=== PATIENT | female | born 1970 | race Caucasian/White ===

== ENCOUNTER 2017-06-14 23:28 | Observation (INO) | payer BC ==
[~2017-06-14] VITALS: Ht 172.7 cm; Wt 129.3 kg
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
--- NOTE | ~2017-06-14 | CR2 ---
[facility] A Service of [facility] RADIOLOGY TEXT RESULTS PATIENT: JEAN-PAUL LOPEZ LOCATION: [facility] : [birth year] UNIT #: [id number] AGE: [address]: Gerardo Toth MD SEX: F ORDER DR: [id number] [address] [address] [id number] I MR#: [id number] Acc #: [id number] NAME: JEAN-PAUL LOPEZ : 1970 SEX: F STUDY DATE/TIME: 06/15/2017 1:21 UNIT: SEDOF ROOM: [facility] STUDY DESCRIPTION: CR Abdomen Acute Series Attending Physician: Katrina Thompson M.D. Ordering Physician: Leodan Toledo M.D. Primary Care Physician: Primary Care Physician No MEDICAL IMAGING REPORT This report is preliminary unless electronic signature is present. EXAM Acute abdomen series 06/15/2017 HISTORY 46-year-old female in the ED complaining of 3-day history of vomiting, diarrhea, generalized abdomen pain and shortness of air. TECHNIQUE Flat and upright abdomen series with PA upright chest x-ray. FINDINGS Bowel gas pattern is within normal limits. Air is scattered throughout normal-caliber small and large bowel with a few scattered air-fluid levels. No evidence of bowel obstruction or bowel perforation. Gallbladder surgical clips. Chest x-ray is negative. The lungs are expanded and clear. Heart size is normal. IMPRESSION Negative acute abdomen series. Dictated by... Jaun Tejeda M.D. THIS IS AN ELECTRONICALLY VERIFIED REPORT Jaun Tejeda M.D. at 06/15/2017 9:49 PM FELICITYW/montse TD: 06/15/2017 07:47 JOB #: [id number] [facility] A Service of [facility] RADIOLOGY TEXT RESULTS PATIENT: JEAN-PAUL LOPEZ LOCATION: [facility] : [birth year] UNIT #: [id number] AGE: [address]: Gerardo Toth MD SEX: F ORDER DR: MEDICAL IMAGING REPORT Page 1 of 1
--- NOTE | ~2017-06-14 | DS ---
Unit #: [id number] #: [id number] Patient: JEAN-PAUL LOPEZ [id number] [address] [address] [id number] I MR#: [id number] NAME: JEAN-PAUL LOPEZ ROOM: 223 Age: 46 Sex: F Admission Date: 06/15/2017 : 1970 Discharge Date: 06/16/2017 Attending Physician: Gerardo Toth M.D. Primary Care Physician: No Primary Care Physician DISCHARGE SUMMARY DIAGNOSES Primary and secondary diagnoses are unchanged from the H and P. Please see those for details. HOSPITAL COURSE The patient was placed in the hospital, was given IV fluid and had bacterial studies done on stool sample. She was negative for C. diff., Shigella or Campylobacter. Sodium returned to normal at 140. Potassium returned to normal at 4.5. Magnesium was 2.3 on the day of discharge. TSH and free T4 were normal. Acute abdominal x-rays were negative. The patient continued to have some diarrhea on the day of discharge and I am prescribing her Lomotil and advising her to follow back up with her PCP in [place] within two weeks. It appears that she likely has acute viral gastroenteritis on top of chronic functional diarrhea. DISCHARGE DISPOSITION To home. DISCHARGE STATUS Stable. DISCHARHE ACTIVITY Ad danielle. DISCHARGE DIET Unrestricted. DISCHARGE MEDICATIONS 1. Lomotil 5 mg p.o. q.i.d. p.r.n. for diarrhea. 2. Zoloft 75 mg p.o. daily. 3. Colestid 2 g p.o. daily. 4. Hydroxyzine 25 to 50 mg p.o. q.h.s. p.r.n. 5. Simvastatin 10 mg p.o. q.h.s. 6. Lisinopril 20 mg p.o. daily. Dictated by... Gerardo Toth M.D. WSB/nelson Unit #: [id number] #: [id number] Patient: JEAN-PAUL LOPEZ TD: 06/18/2017 18:18 JOB #: [id number] DISCHARGE SUMMARY Page 1 of 1 X Gerardo Toth MD DISCHARGE SUMMARY
--- NOTE | ~2017-06-14 | BMI ---
[facility] Nutrition Therapy DATE: 06/15/17 Patient: JEAN-PAUL LOPEZ Physician: CANDIDO Address: [address] [place] [address] STREET Room/Bed: [address] [place] [address], Zip: [place] [address] Admit Date: 06/15/17 Date of : [birth year] Height: 5 8 Weight: 285 129.27 HIGH BMI NOTE: DX: 46 Y.O. FEMALE ADMITTED FOR GASTROENTERITIS ANTHROPOMETRICS: 5'8", WT: 284# (129 KG), BMI: 43.2 DIET: CLEAR LIQUID RECOMMENDATIONS: 1. ONCE MEDICALLY FEASIBLE, ADVANCE DIET INDICATED TO HEALTHY HEART TO PROMOTE GRADUAL WEIGHT LOSS TOWARDS HEALTHY BMI (19.0-25.0) OR +/-10%IBW RD WILL F/U PER PROTOCOL Respectfully, JESSICA TAYLOR MS, RD, LD [facility] cc: client file
[2017-06-14] MEDS ORDERED: BP MED (23:48)
[2017-06-14] MEDS ORDERED: ZOLOFT PO (23:48)
[2017-06-14] MEDS ORDERED: LISINOPRIL20 MG PO (23:57)
[2017-06-14] MEDS ORDERED: HYDROXYZINE HCL25 M1 PO (23:58)
[2017-06-14] MEDS ORDERED: SIMVASTATIN10 MG PO (23:58)
[2017-06-14] MEDS ORDERED: COLESTIPOL HCL1 GM PO (23:59)
[2017-06-15 01:08] LABS: BASOPHIL# 0.1 X10e3 (0-0.3); BASOPHIL% 0.5 % (0-2.5); EOSINOPHIL% 0.2 % (0.0-7.0); HEMATOCRIT 38.7 % (35.0-45.0); HEMOGLOBIN 13.2 gm/dL (12.0-16.0); LYMPHOCYTE# 1.7 X10e3 (1.0-3.5); LYMPHOCYTE% 15.2 % (17.0-45.0); MEAN CELL VOLUME 86.9 FL (83-96); MEAN CORPUSCULAR HEMOGLOBIN 29.6 PG (28-34); MEAN CORPUSCULAR HGB CONC 34.1 g/dL (30-36); MEAN PLATELET VOLUME 7.8 FL (6.5-11.5); MONOCYTE# 0.6 X10e3 (0-1.0); MONOCYTE% 5.6 % (3.0-12.0); NEUTROPHIL# 8.6 X10e3 (1.5-7.1); NEUTROPHIL% 78.5 % (40-75); PLATELET COUNT 258 X10e3 (140-420); RED BLOOD COUNT 4.45 X10e (3.90-5.30); RED CELL DISTRIBUTION WIDTH 14.6 % (11.0-15.5); WHITE BLOOD COUNT 10.9 X10e3 (4.0-10.5)
[2017-06-15 01:11] LABS: DIFF IND NO
[2017-06-15 01:26] LABS: ALBUMIN SERUM 4.2 g/dL (3.5-5.0); BILIRUBIN,TOTAL 0.5 mg/dL (0.2-2.0); CALCIUM SERUM 8.4 mg/dL (8.4-10.2); GLOM FILT RATE Estimated 67.1 mL/min (>60); POTASSIUM 3.1 mmol/L (3.5-5.1); PROTEIN TOTAL SERUM 7.6 g/dL (6.0-8.3)
[2017-06-15 01:57] LABS: URINE SOURCE CLEAN CATCH
[2017-06-15 01:59] LABS: URINE APPEARANCE CLEAR; URINE BILIRUBIN NEG (NEG); URINE BLOOD 1+ (NEG); URINE COLOR YELLOW; URINE GLUCOSE NEG (NORM); URINE KETONE NEG (NEG); URINE LEUKOCYTE ESTERASE NEG (NEG); URINE NITRATE NEG (NEG); URINE PROTEIN TRACE (NEG); URINE SPECIFIC GRAVITY 1.025 (1.003-1.035); URINE UROBILINOGEN 0.2 MG/DL (NORM)
[2017-06-15 02:00] LABS: MICRO INDICATED? YES
[2017-06-15 02:03] LABS: CULTURE INDICATED? YES; URINE BACTERIA 1+ (NEG); URINE MUCUS PRESENT; URINE SQUAMOUS EPITHELIAL CELL OCCAS /[HPF]; URINE TRANSITIONAL EPI CELLS FEW /[HPF]; URINE WBC 0-2 /[HPF] (0-5)
[2017-06-15 12:24] LABS: HEMATOCRIT 34.6 % (35.0-45.0); HEMOGLOBIN 11.6 gm/dL (12.0-16.0); MEAN CELL VOLUME 87.3 FL (83-96); MEAN CORPUSCULAR HEMOGLOBIN 29.2 PG (28-34); MEAN CORPUSCULAR HGB CONC 33.5 g/dL (30-36); MEAN PLATELET VOLUME 7.3 FL (6.5-11.5); RED BLOOD COUNT 3.97 X10e (3.90-5.30); RED CELL DISTRIBUTION WIDTH 14.5 % (11.0-15.5); WHITE BLOOD COUNT 6.3 X10e3 (4.0-10.5)
[2017-06-15 12:48] LABS: BUN/CREATININE RATIO 17.5; CALCIUM SERUM 7.9 mg/dL (8.4-10.2); CREATININE SERUM 0.8 mg/dL (0.6-1.4); GLOM FILT RATE Estimated 87.9 mL/min (>60); MAGNESIUM 1.9 mg/dL (1.6-3.0); POTASSIUM 3.6 mmol/L (3.5-5.1)
[2017-06-15 13:07] LABS: THYROID STIMULATING HORMONE 4.92 uIU/ml (0.34-5.60)
[2017-06-15 13:14] LABS: FREE THYROXIN (T4) 0.7 ng/dL (0.58-1.64)
[2017-06-16 06:53] LABS: BUN/CREATININE RATIO 13.75; CALCIUM SERUM 8.2 mg/dL (8.4-10.2); CREATININE SERUM 0.8 mg/dL (0.6-1.4); GLOM FILT RATE Estimated 87.9 mL/min (>60); MAGNESIUM 2.3 mg/dL (1.6-3.0); POTASSIUM 4.5 mmol/L (3.5-5.1)
[2017-06-16] MEDS ORDERED: LOMOTIL PO (11:43)
[2017-06-16] MEDS ORDERED: immodium PO (12:57)
== END 2017-06-16 13:35 | disposition home or self-care (01) | DRG 392 ==
LOC: SED 23:28 → C2A 06-15 02:27 → SEDOF 06-15 02:27 → C2A 06-15 02:27 → SED 06-15 02:27 → C2A 06-15 04:09 → SEDOF 06-15 04:09 → C2A 06-15 04:23 → SEDOF 06-15 05:00 → C2A 06-15 07:45
PROVIDERS: Internal Medicine
DX: K52.9 Noninfective gastroenteritis and colitis, unspecified (principal); E86.0 Dehydration; E87.1 Hypo-osmolality and hyponatremia; E87.6 Hypokalemia; I10 Essential (primary) hypertension; E78.5 Hyperlipidemia, unspecified; Z88.8 Allergy status to other drugs, medicaments and biological substances; Z79.899 Other long term (current) drug therapy; Z90.49 Acquired absence of other specified parts of digestive tract; Z90.710 Acquired absence of both cervix and uterus
CPT/HCPCS: 36415; 74022; 80048; 80053; 81003; 83690; 83735; 84439; 84443; 85025; 85027; 87045; 87086; 87177; 87209; 87427; 87493; 87899; 96361; 96374; 99285; G0378; J2405; J3475; J3480